=== PATIENT | male | born 1985 | race Caucasian/White ===

== ENCOUNTER 2020-07-24 12:30 | Emergency (ER) | payer OTHER ==
[~2020-07-24] VITALS: Ht 188 cm; Wt 103.4 kg
[2020-07-24 12:44] VITALS: BP 140/83
--- NOTE | 2020-07-24 14:21 | NUR ---
CARE FOR DC ONLY PROVIDED. PT AMB IN [place], WANTING TO GO HOME. NO IV TO DC, REVIEWED DC INSTRUCTIONS WITH PT, UNDERSTANDING VERBALIZED. PT LEFT AMB, GAIT STEADY.
== END 2020-07-24 14:25 | disposition home or self-care (01) ==
LOC: ED 13:52
DX: G47.419 Narcolepsy without cataplexy (principal); Z76.0 Encounter for issue of repeat prescription
CPT/HCPCS: 99281; 99283

== ENCOUNTER 2021-03-19 15:03 | Emergency (ER) | payer OTHER ==
[~2021-03-19] VITALS: Ht 188 cm; Wt 98.6 kg
[2021-03-19 18:07] VITALS: BP 149/99
--- NOTE | 2021-03-19 18:16 | NUR ---
PT TO RM FROM LOBBY AT THIS TIME
--- NOTE | 2021-03-19 19:47 | NUR ---
Patient given discharge instructions and they have confirmed that they understand the instructions. Patient ambulatory with steady gait. NAD, all questions answered appropriately, denies additional needs at this time. No personal belongings left in room after discharge.
== END 2021-03-19 19:49 | disposition home or self-care (01) ==
LOC: ED 18:35
DX: S16.1XXA Strain of muscle, fascia and tendon at neck level, initial encounter (principal); S00.83XA Contusion of other part of head, initial encounter; Y04.8XXA Assault by other bodily force, initial encounter; Y93.89 Activity, other specified; Y92.89 Other specified places as the place of occurrence of the external cause; Y99.8 Other external cause status; F17.200 Nicotine dependence, unspecified, uncomplicated
CPT/HCPCS: 70450; 70486; 72125; 99285